=== PATIENT | male | born 1950 | race Caucasian/White ===

== ENCOUNTER 2016-10-06 08:21 | Day surgery (SDC) | payer OTHER ==
[~2016-10-06] VITALS: Ht 167.6 cm; Wt 91.2 kg
--- NOTE | ~2016-10-06 | S ---
[facility] [place] [address] SURGICAL PATH RPT PROCEDURE Name: KATHERINE TRENT Room #: DEP [facility].#: [id number] Admission: 10/06/16 Date of : 46 Discharge: 10/07/16 Report #: [id number] Path Case #: [id number] PATHOLOGY REPORT COLLECTION DATE: 10/06/2016 RECEIVED DATE: 10/06/2016 SUBMITTING PHYS: Dr. Tam Espinal OTHER PHYS: Dr. Clinton Lainez SPECIMEN(S) RECEIVED: A.Melanoma right pinna helix B.Superficial right parotid lymph node C.Deep right parotid lymph node * * * * * * * * * * * * FINAL DIAGNOSIS: A. Skin, "melanoma right pinna helix", re-excision: - Previous biopsy site present. - No evidence of residual malignant melanoma. - Residual intradermal nevus, present at 6:00 and 12:00 tip margins. B. "Superficial right parotid lymph node", biopsy: - One lymph node with no evidence of malignant melanoma (0/1). - Adjacent unremarkable salivary gland tissue. C. "Deep right parotid lymph node", biopsy: - One lymph node with no evidence of malignant melanoma (0/1). - Adjacent unremarkable salivary gland tissue. (Please see comment) COMMENT: No evidence of malignant melanoma is seen in blocks B1 and C1 with the HMB-45, Melan-A, and S100 immunoperoxidase stains. The diagnosis of part "A" in this case is made in conjunction with a consultation with Miroslava Steve MD, Dermatopathologist at [facility]. (SKM:mml; 10/08/2016) PATHOLOGIST: Jocelyn Perez M.D. REPORT ELECTRONICALLY SIGNED BY: Jocelyn Perez M.D. DATE/TIME: 10/08/2016 15:21 * * * * * * * * * * * * GROSS PATHOLOGY: A. The specimen is received in formalin, labeled "Katherine Trent, melanoma right pinna helix, suture at 12:00" is a rectangular excision of colon-viramontes, rubbery skin measuring 1.9 x 0.9 x 0.4 cm. The specimen is marked at one end with a black suture designating the [address] [place] [id number] SURGICAL PATH RPT PROCEDURE Name: KATHERINE TRENT Room #: [facility]#: [id number] Admission: 10/06/16 Date of : 46 Discharge: 10/07/16 Report #: [id number] Path Case #: [id number] o'clock position. The 12-3:00 edge is inked yellow, the 3-6:00 edge is inked blue and the remaining margins are inked black. Centered within the excision is a shallow, ulcerated lesion measuring 0.4 x 0.2 cm. The lesion grossly extends to within 0.5 cm of the closest (3:00) margin of resection. No additional abnormalities are noted. The specimen is sectioned into 10 pieces and entirely submitted as follows: A1 - 12 and 6:00 margins, en face A2 - remaining 12:00 half A3 - remaining 6:00 half B. The specimen is received in formalin, labeled "Katherine Trent, superficial right parotid lymph node" is one colon-brown, nodular, rubbery portion of tissue measuring 0.8 x 0.4 x 0.2 cm. No distinct abnormalities are noted. The specimen is entirely submitted in cassette B1. C. The specimen is received in formalin, labeled "Katherine Trent, deep right parotid lymph node" is an irregular, colon-brown, nodular portion of tissue measuring 1.0 x 0.4 x 0.4 cm. The cut surface is colon-viramontes and spongy. The specimen is bisected and entirely submitted in cassette C1. (LUCILA; 10/07/2016) CLINICAL HISTORY: Melanoma helix right ear INITIAL CPT CODE(S): A; 50610 B; 34424, 66253, 94205, 57718 C; 34703, 48910, 97795, 28702 Professional services performed by [facility] [facility] at [facility] [address] [place] [address] Technical services performed by [facility] [facility] at [address] [place] [address], [address], [place] [address]. [facility] [address] [place] [address] PHONE: [phone] DIRECTOR: Kostas Khan M.D. * * * END OF REPORT * * *
--- NOTE | ~2016-10-06 | EKG ---
[place] [address] [address] [facility] [place] [address] ELECTROCARDIOGRAM REPORT Name: KATHERINE TRENT Room #: 443-P [facility]#: [id number] Admission: 10/06/16 Attend Phys: Tam Espinal MD Discharge: Date of : 46 Report #: [id number] THIS REPORT FOR: //name// [facility] Test Date: 2016-10-06 Test Time: 15:44:26 Pat Name: KATHERINE TRENT Department: Room: 150 9 Gender: M Clinical Medical Assistant: Paz GRAFF : 1950 Requested By: Tam Espinal Order Number: [id number] MD: Gustavo Winn Measurements Intervals [place] Rate: 73 P: 85 CT: 171 QRS: 4 QRSD: 88 T: 40 QT: 446 QTc: 492 Interpretive Statements Sinus rhythm Borderline low voltage, extremity leads Nonspecific ST and T wave abnormality Compared to ECG 09/08/2015 08:26:31 No significant changes Electronically Signed On 10-07-2016 7:54:19 CDT by Gustavo Winn [email or web address] <ELECTRONICALLY SIGNED> By: Gustavo Winn MD, [facility] 10/07/16 0754 1544 1544 Gustavo Winn MD, [facility] /EPI
--- NOTE | ~2016-10-06 | O ---
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 POSTOPERATIVE DIAGNOSIS: Lentigo maligna melanoma, right helical rim, right pinna, Umang level 2, Breslow thickness 0.82 mm. OPERATION PERFORMED: 1. Right partial auriculectomy. 2. [place] lymph node biopsy times 2 with lymph node mapping. 3. Tube flap reconstruction, right pinna. 4. Facial nerve monitor times 2 hours. SURGEON: Keyana Espinal M.D. ANESTHESIA: General endotracheal. INDICATIONS: The patient is a 66-year-old gentleman referred by Danial Gomes and Dr. 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 Biopsy was done 09/07/2016. This was a Umang level 2, Breslow thickness 0.82 mm. It was nonulcerated and arose in a preexisting nevus. Mitotic index was 0 mm2, lymphovascular invasion was not seen, perineural invasion was not seen. Recommendations were made for wide local excision via right auriculectomy of the right helical rim followed by flap reconstruction of the defect utilizing his own helical rim and sentinel node biopsy. DESCRIPTION OF PROCEDURE: The patient was brought to the operating room and placed supine on the operating table. After adequate general anesthesia was achieved via endotracheal intubation, he was turned 180 degrees. A shoulder roll was placed and the right ear was placed up. The planned incision was marked out, taking a 1 cm margin around the scar from the melanoma excision. This was then injected with 1% Xylocaine with 1:100,000 epinephrine. A gamma probe was then used to map the lymph nodes in the area. This seemed to drain to the inferior parotid area over level 2 with the point of maximal uptake. This [facility] [address] [place] [address] OPERATIVE REPORT Name: KATHERINE TRENT Room #: 443-P [facility]#: [id number] Admission: 10/06/16 Attend Phys: Keyana Espinal MD Discharge: Date of : 46 Report #: [id number] area was then prepped out into the field. After mapping as a separate part of the procedure, the Xomed ____ nerve integrity monitor was applied to the right face for continuous intraoperative monitoring of the facial nerve. Needle electrodes were placed in orbicularis carmen and orbicularis oculi muscles with ground electrodes in the soft tissue overlying the sternum and contralateral shoulder. Electrode resistance and impedance was measured and found to be acceptable. Threshold and stimulus intensity parameters were set, and the patient was monitored for the entirety of the case of approximately 2 hours in order to locate and protect the facial nerve. He was then prepped and draped in a sterile fashion. The procedure began with excision of melanoma. 1 cm gross origins were verified and a through and through incision was made through the helical rim into the underlying cartilage of the ear taking out a square segment of the helical rim. Suture was used to keyana 12 o'clock with a 2-0 silk suture. This was then delivered off the field as specimen in formalin. Once this was completed, hemostasis was assured with bipolar cautery. Attention was then turned to the sentinel node biopsy. The gamma probe was again used to verify, uptake was seen in the inferior parotid lobe anterior to the sternocleidomastoid muscle around level 2. A lower limb of a Meng incision had been designed and injected with 1% Xylocaine with 1:100,000 epinephrine. An incision was then made and carried down to the subcutaneous tissue. Subcutaneous flaps were elevated superiorly and inferiorly and held open with ____ inferior portion of the parotid. Using hemostat dissection, dissection was made down through the parotid gland. The retromandibular vein was identified and preserved. The lymph node was found just anterior and deep to the retromandibular vein. Two areas of uptake were found. The first may contain a very small lymph node. The in vivo count prior to excision on a 10-second count with the gamma probe was 687. The ex vivo count was 318 and the surgical bed post-removal was 116. Because of continued uptake, dissection was made deep to this area and a 1 cm lymph node was then found deep and a little bit more anterior. 10-second count in vivo was 561. Ex vivo was 308 and the parotid bed post-removal was 81 showing complete removal. The gamma probe was then used to explore for further parotid as well as level 2 lymph nodes ____ seemed to be hot. At that time, the hemostasis was assured with bipolar cautery and the incision into the parotid was then closed loosely with interrupted 3-0 Vicryl. Skin flaps were returned to original position and closed with interrupted 4-0 Vicryl deep dermal sutures and 35 wide renetta on skin. No drain was needed. Attention was then returned to the right helix and partial auriculectomy. Decision was made to reconstruct this with a tube flap utilizing the patient's helical rim. This was then designed and injected with 1% Xylocaine with [facility] [address] [place] [address] OPERATIVE REPORT Name: KATHERINE TRENT Room #: 443-P [facility].#: [id number] Admission: 10/06/16 Attend Phys: Keyana Espinal MD Discharge: Date of : 46 Report #: [id number] 1:100,000 epinephrine. This was then incised up to the root of the helix so that this could then bend around reconstructing the defect. A small amount of auricular cartilage was removed to facilitate this and keep from this fanning. Once this was inset, it was then closed in the deep tissue with interrupted 4-0 Vicryl deep dermal sutures. The cartilage was then approximated with interrupted 4-0 Vicryl sutures. The anterior skin was then closed with interrupted 5-0 Nylon. The posterior incision was closed with an interrupted 4-0 chromic gut. The wound was able to be closed completely with nice reconstruction of the pinna. Mastisol and Steri-Strips were applied. The vascularity appeared excellent on the flap. A standard adult size Arben dressing was applied. The patient was then returned to anesthesia, awake without difficulty and returned to recovery room in good condition. Sponge and needle counts were correct. There were no complications. Blood loss was about 20 mL. He will be watched overnight for monitoring secondary to his recent cardiac finding of reversible ischemia. Written and verbal discharge instructions and emergency precautions have been given to his family. DISCHARGE MEDICATIONS: Include cephalexin 500 mg b.i.d. for 10 days; hydrocodone/acetaminophen 7.5/325, 1-2 every 4-6 hours p.r.n.; Phenergan suppository 25 mg 1 per rectum q. 4-6 hours p.r.n. He is instructed on light activity and a soft diet. He will begin Bactroban ointment to his ear at home. The patient understands that if his sentinel nodes are positive, further work would need to be done including neck dissection and parotidectomy. On the other hand if the lymph nodes are negative as expected, then no further surgical intervention is necessary. By: 1533 1716 Keyana Espinal MD /ghazal
[~2016-10-06 08:21] MED LIST: ASPIR 8181 MG PO; HYDROCODONE-AP1 EAC6 PO; KLOR-CON 1010 MEQ PO; MOBIC7.5 MG PO; MULTIVITAMINS1 EAC7 PO; PENTOXIFYLLINE400 MG PO; TUMS PO; VITAMIN C500 M1 PO; VITAMIN D1000 UNI1 PO
[2016-10-06 10:35] VITALS: BP 140/76
[2016-10-06] MEDS ORDERED: PROMS25 WY RECTAL (15:41)
[2016-10-06] MEDS ORDERED: CEPHALEXIN 500500 M3 PO (15:41)
[2016-10-06] MEDS ORDERED: HYDROCODONE-APA1 TA1 PO (15:42)
[2016-10-06 17:20] VITALS: BP 153/81
[2016-10-06 19:46] VITALS: BP 148/82
[2016-10-07 00:24] VITALS: BP 145/78
[2016-10-07 04:30] VITALS: BP 112/57
[2016-10-07 05:52] LABS: HEMATOCRIT 41.5 % (42.0-52.0); HEMOGLOBIN 14.3 gm/dL (14.0-18.0); MCH 33.2 pg (26.0-34.0); MCHC 34.5 g/dL (28.0-37.0); MCV 96.2 fL (80.0-100.0); RBC 4.31 mil/uL (4.50-6.00); WBC 8.3 thou/uL (4.0-11.0)
[2016-10-07 06:06] LABS: CALCIUM 8.6 mg/dL (8.5-10.1); CREATININE 0.9 mg/dL (0.7-1.3); POTASSIUM 4.3 mmol/L (3.5-5.1)
[2016-10-07 08:33] VITALS: BP 113/59
[2016-10-07 14:08] VITALS: BP 113/59
== END 2016-10-07 14:48 | disposition home or self-care (01) ==
LOC: 4S 08:21 → NUC 08:21 → TBA 08:51 → 4S 16:56 → NUC 10-07 14:48
PROVIDERS: Otolaryngology Plastic Surgery within the Head & Neck
DX: D23.21 Other benign neoplasm of skin of right ear and external auricular canal (principal); G47.33 Obstructive sleep apnea (adult) (pediatric); F17.210 Nicotine dependence, cigarettes, uncomplicated; K21.9 Gastro-esophageal reflux disease without esophagitis; Z98.41 Cataract extraction status, right eye; Z98.42 Cataract extraction status, left eye; Z98.890 Other specified postprocedural states; Z79.82 Long term (current) use of aspirin; Z85.828 Personal history of other malignant neoplasm of skin
CPT/HCPCS: 50010; 50101; 50386; 51412; 52220; 52225; 53358; 53550; 56524; 56526; 56527; 56528; 57006; 62110; 62900; 70005

== ENCOUNTER 2016-11-08 06:37 | Observation (INO) | payer OTHER ==
[~2016-11-08] VITALS: Ht 167.6 cm; Wt 94.9 kg
--- NOTE | ~2016-11-08 | EKG ---
[place] [address] [employer] [facility] [place] [address] ELECTROCARDIOGRAM REPORT Name: KATHERINE TRENT Room #: 214-P [facility] M.R.#: [id number] Admission: 11/08/16 Attend Phys: Floyd Mar MD, Discharge: Date of : 46 Report #: [id number] THIS REPORT FOR: //name// [facility] Test Date: 2016-11-09 Test Time: 05:53:52 Pat Name: KATHERINE TRENT Department: Room: 214 P Gender: M Head Of Data: GR : 1950 Requested By: Floyd Mar Order Number: [id number] MD: Gustavo Winn Measurements Intervals [place] Rate: 60 P: 4 OK: 130 QRS: -3 QRSD: 95 T: 45 QT: 444 QTc: 444 Interpretive Statements Sinus rhythm Abnormal R-wave progression, early transition Compared to ECG 11/08/2016 11:41:39 No significant changes Electronically Signed On 11-09-2016 7:33:31 CDT by Gustavo Winn [email or web address] <ELECTRONICALLY SIGNED> By: Gustavo Winn MD, [facility] 11/09/16 0733 0553 0553 Gustavo Winn MD, [facility] /EPI
--- NOTE | ~2016-11-08 | CATHLAB ---
[facility] [place] [place] [address] INVASIVE PROCEDURE REPORT Name: TWANKATHERINE Justo Room #: 214-P [facility] [place] ..#: [id number] Admission: 11/08/16 Attend Phys: Floyd Mar, Discharge: 11/09/16 Date of : 46 Date of Service: 11/11/16 0825 Report #: [id number] THIS REPORT FOR: //name// APPROVED REPORT Patient Details Patient Status: Out-Patient Room #: The patient is a 66 year-old male Event Personnel Floyd Mar Edge Polisher, Shilpa Gonzales, Rashad Dubon RN, Keyshawn Victoria RN RN, Tay Vincent Scrub Procedures Performed Art Access - R femoral artery* 32278 Initial Mod Sed Same Phys/QHP Gr5y 758256 85005 Mod Sed Same Phys/QHP Ea 733053 Left Heart Cath w/or w/o Coronaries 6031071 LHC PTCA Single Vessel RCA 5037684 PCISINGLE Aortogram Abdominal Peripheral Angio 393651 Hemostasis w/ Mynx Procedure Narrative The patient was brought electively to the Cardiac Catheterization Laboratory and was prepped and draped in a sterile manner. The Right Groin^ was infiltrated with 1% Lidocaine subcutaneous anesthesia. A PINNACLE 6FR Sheath #[id number] sheath was inserted into the RFA^. Coronary angiography was performed using coronary diagnostic catheters. The right coronary system was accessed and visualized with a 6FR JR 4 #[id number] catheter. The left coronary system was accessed and visualized with a 6FR JL4 #[id number] catheter. The left ventricle was accessed and visualized with a 6FR PIGTAIL STRAIGHT #295083 catheter. Left ventricular/Aortic Valve gradient assessed via catheter pullback. Left ventriculogram was performed in 30 degree projection. An aortogram of the abdominal aorta was performed. Closure device was deployed with a 6 Fr MYNXGRIP 6/7F #[id number]. The patient tolerated the procedure well and there were no complications associated with the procedure. There was no hematoma. Intraoperative Conscious Sedation Sedation start time: 08:41 Case end Time: 09:46 Fentanyl 100.0 mcg Versed 2.0 mg Fluoro Time: 20.27 minutes Dose: DAP 36002.10 cGycm2 2876 mGy [address] [place] [address] INVASIVE PROCEDURE REPORT Name: KATHERINE TRENT Room #: 214-P [facility]#: [id number] Admission: 11/08/16 Attend Phys: Floyd Mar, Discharge: 11/09/16 Date of : 46 Date of Service: 11/11/16 0825 Report #: [id number] Contrast Type and Amount: Omnipaque 220 ml IVUS Findings Sprinter OTW 2.0 x 10 #[id number] Hemodynamics The aortic pressure is 163/70 mmHg with a mean of 105 mmHg. The left ventricular pressure is 189/8 mmHg with a mean of mmHg. The left ventricular end diastolic pressure is 24 mmHg. PCI Technique Lesion Anticoagulation was achieved with Heparin. Percutaneous coronary intervention was performed on the Distal right coronary artery. A LAUNCHER 6FR JR 4 90CM #989250 Guide Catheter was used to engage the ostium. A Luge Wire .014 x 182CM #[id number] Interventional Guidewire was used to cross the lesion. BALLOON DILATION A Balloon catheter Sprinter OTW 1.5 x 12 #[id number] was inserted and inflated up to 14.00atm for 29seconds. Additional Inflation: 18.00atm for 24seconds. POST STENT DEPLOYMENT BALLOON DILATION A Balloon catheter Sprinter OTW 2.5 x 12 #[id number] was inserted and inflated up to 12.00atm for 21seconds. Additional Inflation: 10.00atm for 21seconds. BALLOON DILATION A Balloon catheter Sprinter OTW 2.0 x 10 #[id number] was inserted and inflated up to 14.00atm for 27seconds. Additional Inflation: 18.00atm for 30seconds. Additional Inflation: 18.00atm for 18seconds. POST STENT DEPLOYMENT BALLOON DILATION A Balloon catheter Sprinter OTW 2.5 x 12 #[id number] was inserted and inflated up to 16.00atm for 37seconds. Additional Inflation: 18.00atm for 34seconds. Conclusion #1 successful PTCA of high-grade ostial proximal PDA lesion from 90% to 30% balloon angioplasty alone #2 the dominant right which gave rise to the PDA NESHA is moderately diseased and ectatic. Distal segment is a 50-60% lesion before it heads into the high-grade PDA which was successfully dilated posterior lateral branch is mildly diseased #3 left main has some mild ostial disease of 20-30% giving rise to LAD and circumflex [facility] [address] [place] [address] INVASIVE PROCEDURE REPORT Name: KATHERINE TRENT Room #: 214-P [facility] M.R.#: [id number] Admission: 11/08/16 Attend Phys: Floyd Mar, Discharge: 11/09/16 Date of : 46 Date of Service: 11/11/16824 Report #: [id number] #4 LAD proximal disease 2030% diffuse disease distally is a type I LAD which stops short of the apex. Diffusely diseased and small distally diagonal branch well preserved #5 circumflex OM is nondominant with mild irregularities relatively small #6 normal left ventricular size and systolic function EF 60% #7 abdominal aorta is intact no aneurysm single renal arteries bilaterally are widely patent Recommendations and plan continued aggressive risk factor modification will utilize short period of time of dual antiplatelet therapy with a recent PTCA only of the ostial PDA. This has 110 angle which makes this difficult to deliver a stent. However could attempt if there is significant restenosis with better guide support and wire support. Although this angulation it makes is technically difficult. A good result was obtained with angioplasty alone. Continued activity no lifting for 48 hours overlying tub Jacuzzi or Trimble for a week. Transfer to CCU in stable condition. <ELECTRONICALLY SIGNED> By: Floyd Mar MD, FACC 11/11/16824 4 4 Floyd Mar MD, FACC /INF
--- NOTE | ~2016-11-08 | EKG ---
[place] [address] [address] [place] [address] ELECTROCARDIOGRAM REPORT Name: KATHERINE TRENT [facility] [id number] Admission: 11/08/16 Attend Phys: Floyd Mar MD, Discharge: Date of : 46 Report #: [id number] THIS REPORT FOR: //name// [facility] Test Date: 2016-11-08 Test Time: 07:09:57 Pat Name: KATHERINE TRENT Department: Room: Gender: Dental Assisting Instructor: Lacey ROGEL : 1950 Requested By: lFoyd Mar Order Number: [id number] MD: Gustavo Winn Measurements Intervals [place] Rate: 61 P: 11 UT: 131 QRS: 4 QRSD: 90 T: 33 QT: 428 QTc: 431 Interpretive Statements Sinus rhythm Abnormal R-wave progression, early transition Compared to ECG 10/06/2016 15:44:26 ST (T wave) deviation no longer present Electronically Signed On 11-08-2016 8:54:23 CDT by Gustavo Winn [email or web address] <ELECTRONICALLY SIGNED> By: Gustavo Winn MD, [facility] 11/08/16 0854 8 8 Gustavo Winn MD, [facility] /EPI
--- NOTE | ~2016-11-08 | EKG ---
[place] [address] [facility] [place] [address] ELECTROCARDIOGRAM REPORT Name: KATHERINE TRENT Room #: 214-P [facility] M.R.#: [id number] Admission: 11/08/16 Attend Phys: Floyd Mar MD, Discharge: Date of : 46 Report #: [id number] THIS REPORT FOR: //name// [facility] Test Date: 2016-11-08 Test Time: 11:41:39 Pat Name: KATHERINE TRENT Department: Room: 214 P Gender: M Precision Jig Grinder: Lacey ROGEL : 1950 Requested By: Floyd Mar Order Number: [id number] MD: Measurements Intervals [place] Rate: 54 P: 1 [place]: 132 QRS: 4 QRSD: 86 T: 38 QT: 442 QTc: 419 Interpretive Statements Sinus rhythm Abnormal R-wave progression, early transition Compared to ECG 11/08/2016 07:09:57 No significant changes [email or web address] By: 1141 1141 [facility], /EPI
[~2016-11-08 06:37] MED LIST changes: +CEPHALEXIN 500500 M3 PO; +HYDROCODONE-APA1 TA1 PO; +PROMS25 WY RECTAL
[2016-11-08 07:10] LABS: HEMATOCRIT 46.1 % (42.0-52.0); HEMOGLOBIN 15.6 gm/dL (14.0-18.0); MCH 32.4 pg (26.0-34.0); MCHC 33.9 g/dL (28.0-37.0); MCV 95.4 fL (80.0-100.0); RBC 4.83 mil/uL (4.50-6.00); RDW 14.7 % (10.5-14.5)
[2016-11-08 07:23] LABS: CALCIUM 8.8 mg/dL (8.5-10.1); CREATININE 0.9 mg/dL (0.7-1.3); POTASSIUM 4.2 mmol/L (3.5-5.1)
[2016-11-08 07:29] VITALS: BP 153/85
[2016-11-08] MEDS ORDERED: MOBIC7.5 MG PO (07:48)
[2016-11-08] MEDS ORDERED: LISINOPRIL20 MG PO (07:49)
[2016-11-08] MEDS ORDERED: AMBIEN 5 MG TABL5 M1 PO (07:49)
[2016-11-08] MEDS ORDERED: LIPITOR 20 MG T20 M1 PO (07:50)
[2016-11-08 10:51] VITALS: BP 136/82
[2016-11-08 15:22] VITALS: BP 143/83
[2016-11-08 19:41] VITALS: BP 143/69
[2016-11-08 23:34] VITALS: BP 131/77
[2016-11-09 03:58] VITALS: BP 131/69
[2016-11-09 04:20] LABS: HEMATOCRIT 43.2 % (42.0-52.0); HEMOGLOBIN 14.5 gm/dL (14.0-18.0); MCH 32.2 pg (26.0-34.0); MCHC 33.6 g/dL (28.0-37.0); MCV 95.9 fL (80.0-100.0); RBC 4.51 mil/uL (4.50-6.00); RDW 14.5 % (10.5-14.5); WBC 8.7 thou/uL (4.0-11.0)
[2016-11-09 04:35] LABS: CALCIUM 8.8 mg/dL (8.5-10.1); CREATININE 0.8 mg/dL (0.7-1.3); TROPONIN-I 0.09 ng/mL (<0.04-0.07)
[2016-11-09 07:36] VITALS: BP 140/73
[2016-11-09] MEDS ORDERED: ATORVASTATIN CA40 MG PO (07:49)
[2016-11-09] MEDS ORDERED: CLOPIDOGREL75 MG PO (07:49)
[2016-11-09] MEDS ORDERED: ASPIR 8181 MG PO (07:50)
[2016-11-09 10:27] VITALS: BP 140/73
== END 2016-11-09 11:35 | disposition home or self-care (01) ==
LOC: CATH 06:37 → 2N 10:20 → CATH 10:47 → ENTRNSPT 11-09 11:23 → EDTRNSPTSTS 11-09 11:25 → 2N 11-09 11:35
PROVIDERS: Internal Medicine Cardiovascular Disease
DX: I25.10 Atherosclerotic heart disease of native coronary artery without angina pectoris (principal); R94.39 Abnormal result of other cardiovascular function study; I10 Essential (primary) hypertension; E78.00 Pure hypercholesterolemia, unspecified; F17.210 Nicotine dependence, cigarettes, uncomplicated

== ENCOUNTER → 2017-02-15 | Outpatient (CLI) | payer OTHER ==
[~2017-02-15] MED LIST changes: +AMBIEN 5 MG TABL5 M1 PO; +ASPIRIN325 PO; +ATORVASTATIN CA40 MG PO; +CLOPIDOGREL75 MG PO; +FLOMAX0.4 MG PO; +FUROSEMIDE 40 M40 M1 PO; +HYDROCODON-ACE1 EAC7 PO; +IMDUR 30 MG TAB30 M1 PO; +LIPITOR 20 MG T20 M1 PO; +LISINOPRIL20 MG PO; +LISINOPRIL5 MG PO; +METOPROLOL SUCC25 M1 PO; +NEURONTIN 300300 M1 PO; +PERCOCET PO; +PLAVIX 75 MG TA75 M1 PO; +POTASSIUM20 PO; +TRAMADOL 50 MG50 MG PO; +TYLENOL EXTRA500 MG PO; +VITAMINC500 PO
== END ==
LOC: HYPER 07:00
DX: L97.821 Non-pressure chronic ulcer of other part of left lower leg limited to breakdown of skin (principal); M19.90 Unspecified osteoarthritis, unspecified site; I25.10 Atherosclerotic heart disease of native coronary artery without angina pectoris; I10 Essential (primary) hypertension; Z98.49 Cataract extraction status, unspecified eye; Z98.62 Peripheral vascular angioplasty status; Z87.891 Personal history of nicotine dependence; Z72.89 Other problems related to lifestyle

== ENCOUNTER → 2017-02-22 | Outpatient (CLI) | payer OTHER | LOC: HYPER 06:41 | DX: L97.821 Non-pressure chronic ulcer of other part of left lower leg limited to breakdown of skin (principal); I25.10 Atherosclerotic heart disease of native coronary artery without angina pectoris; M19.90 Unspecified osteoarthritis, unspecified site; Z85.820 Personal history of malignant melanoma of skin; Z87.891 Personal history of nicotine dependence; Z72.89 Other problems related to lifestyle ==

== ENCOUNTER → 2017-03-01 | Outpatient (CLI) | payer OTHER | LOC: HYPER 06:54 | DX: L97.821 Non-pressure chronic ulcer of other part of left lower leg limited to breakdown of skin (principal); I10 Essential (primary) hypertension; I25.10 Atherosclerotic heart disease of native coronary artery without angina pectoris; M19.90 Unspecified osteoarthritis, unspecified site; Z85.820 Personal history of malignant melanoma of skin; Z87.891 Personal history of nicotine dependence; Z72.89 Other problems related to lifestyle ==

== ENCOUNTER → 2017-03-17 | Outpatient (CLI) | payer OTHER | LOC: HYPER 06:45 | DX: I87.321 Chronic venous hypertension (idiopathic) with inflammation of right lower extremity (principal); L97.811 Non-pressure chronic ulcer of other part of right lower leg limited to breakdown of skin; R60.0 Localized edema; R21 Rash and other nonspecific skin eruption; M19.90 Unspecified osteoarthritis, unspecified site; I25.10 Atherosclerotic heart disease of native coronary artery without angina pectoris; Z85.828 Personal history of other malignant neoplasm of skin; Z87.891 Personal history of nicotine dependence; Z72.89 Other problems related to lifestyle ==

== ENCOUNTER → 2017-11-08 | Outpatient (CLI) | payer OTHER ==
[~2017-11-08] VITALS: Ht 167.6 cm; Wt 85.3 kg
--- NOTE | ~2017-11-08 | CATHLAB ---
[facility] [employer] [place] [address] INVASIVE PROCEDURE REPORT Name: KATHERINE TRENT Room #: REG RAMIRO Jeong#: [id number] Admission: 11/08/17 Attend Phys: Floyd Mar, Discharge: Date of : 46 Date of Service: 11/16/17 1022 Report #: [id number] THIS REPORT FOR: //name// APPROVED REPORT Study performed: 11/08/2017 07:56:45 Patient Details Patient Status: Out-Patient Room #: The patient is a 67 year-old male Event Personnel Floyd Mar Latin Teacher, Natalio Canales RN RN, Amarilys Duran RN RN, Consuelo Ryan RTR, [place] Scrub, Sugey Cespedes RTR Scrub, Tay Vincent Monitor Procedures Performed Left Heart Cath w/or w/o Coronaries [id number] [facility] Renal Bilateral Peripheral Angiography [id number] CVRENALBIL Indication Chest pain Procedure Narrative The Right Groin^ was infiltrated with 1% Lidocaine subcutaneous anesthesia. A PINNACLE 6FR Sheath #[id number] sheath was inserted into the RFA^. Coronary angiography was performed using coronary diagnostic catheters. The right coronary system was accessed and visualized with a JR4 catheter. The left coronary system was accessed and visualized with a JL4 catheter. The left ventricle was accessed and visualized with a PIGTAIL catheter. Left ventriculogram was performed in 30 degree projection. Closure device was deployed with a 6 Fr MYNXGRIP 6/7F #[id number]. The patient tolerated the procedure well and there were no complications associated with the procedure. There was no hematoma. Intraoperative Conscious Sedation Sedation start time: 8.14 Case end Time: 8.38 Fentanyl 50 mcg Versed 1 mg Fluoro Time: 1.25 minutes Dose: DAP 2992 cGycm2 357 mGy Contrast Type and Amount: Omnipaque 110 ml [facility] [employer] [place] [address] INVASIVE PROCEDURE REPORT Name: KATHERINE TRENT Room #: [facility] RAMIRO Jeong#: [id number] Admission: 11/08/17 Attend Phys: Floyd Mar, Discharge: Date of : 46 Date of Service: 11/16/17 1022 Report #: [id number] Hemodynamics The aortic pressure is 155/64 mmHg with a mean of 58 mmHg. The left ventricular pressure is 145/11 mmHg with a mean of mmHg. 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 Significant mid vessel calcification with an eccentric lesion 60-70% mid vessel with complex 70-80% bifurcation lesion involving the distal right and ostial PDA significant calcification and small aneurysm is noted This is relatively unchanged from the prior catheterization. That involved balloon angioplasty only of the ostial PDA. Unable to deliver stent at that setting no significant progression here. #6 selective bilateral renal arteries have mild ostial disease Recommendations and plan or continue aggressive risk factor modification. We'll hold off on intervention to this complex dominant right due to paucity of symptoms and notes significant change since prior catheterization of 2015. Close follow-up with evaluation of amount of ischemia to follow in the next 3-6 months with pharmacologic nuclear stress testing <ELECTRONICALLY SIGNED> By: Floyd Mar MD, FACC 11/16/17 1022 1022 1022 Floyd Mar MD, FACC /INF
--- NOTE | ~2017-11-08 | EKG ---
[address] [address] [address] [place] [address] ELECTROCARDIOGRAM REPORT Name: KATHERINE TRENT Room #: REG NICK Jeong#: [id number] Admission: 11/08/17 Attend Phys: Floyd Mar MD, Discharge: Date of : 46 Report #: [id number] THIS REPORT FOR: //name// [facility] Test Date: 2017-11-08 Test Time: 07:03:44 Pat Name: KATHERINE TRENT Department: Room: Gender: Emr Analyst: : 1950 Requested By: Floyd Mar Order Number: [id number] MD: Measurements Intervals [place] Rate: 61 P: [place]: QRS: 12 QRSD: 74 T: 44 QT: 430 QTc: 433 Interpretive Statements Junctional rhythm Borderline low voltage, extremity leads Compared to ECG 10/13/2017 06:38:04 Junctional rhythm now present Sinus rhythm no longer present [email or web address] By: 2 1790 Epiphany EpiphanyMD /EPI
[2017-11-08 06:58] VITALS: BP 110/62
[2017-11-08 07:23] LABS: MCH 34.2 pg (26.0-34.0); MCHC 35.4 g/dL (28.0-37.0); MCV 96.6 fL (80.0-100.0); RBC 3.21 mil/uL (4.50-6.00); RDW 14.9 % (10.5-14.5)
[2017-11-08 07:34] LABS: CALCIUM 8.8 mg/dL (8.5-10.1); POTASSIUM 3.7 mmol/L (3.5-5.1)
== END | disposition home or self-care (01) ==
LOC: CATH 06:39
PROVIDERS: Internal Medicine Cardiovascular Disease
DX: I25.10 Atherosclerotic heart disease of native coronary artery without angina pectoris (principal); I70.1 Atherosclerosis of renal artery; I10 Essential (primary) hypertension; E78.5 Hyperlipidemia, unspecified; G47.33 Obstructive sleep apnea (adult) (pediatric); K21.9 Gastro-esophageal reflux disease without esophagitis; Z85.828 Personal history of other malignant neoplasm of skin; Z98.41 Cataract extraction status, right eye; Z98.42 Cataract extraction status, left eye; Z96.641 Presence of right artificial hip joint; Z87.891 Personal history of nicotine dependence; Z82.49 Family history of ischemic heart disease and other diseases of the circulatory system; Z95.5 Presence of coronary angioplasty implant and graft; Z79.899 Other long term (current) drug therapy

== ENCOUNTER → 2019-04-16 | Outpatient (CLI) | payer OTHER, MEDICARE | LOC: SJCVCIMAG 08:13 | DX: I73.9 Peripheral vascular disease, unspecified (principal) ==

== ENCOUNTER → 2019-08-21 | Outpatient (CLI) | payer OTHER, MEDICARE | LOC: SJCVCIMAG 11:15 | PROVIDERS: ATTEND Internal Medicine Cardiovascular Disease | DX: I25.10 Atherosclerotic heart disease of native coronary artery without angina pectoris (principal); I10 Essential (primary) hypertension; I73.9 Peripheral vascular disease, unspecified; E78.5 Hyperlipidemia, unspecified ==

== ENCOUNTER → 2020-03-12 | Outpatient (CLI) | payer OTHER, MEDICARE | LOC: SJCVC 16:24 | PROVIDERS: ATTEND Internal Medicine Cardiovascular Disease | DX: R94.31 Abnormal electrocardiogram [ECG] [EKG] (principal); I87.2 Venous insufficiency (chronic) (peripheral); M79.89 Other specified soft tissue disorders; E78.00 Pure hypercholesterolemia, unspecified; I10 Essential (primary) hypertension; I25.10 Atherosclerotic heart disease of native coronary artery without angina pectoris; E11.9 Type 2 diabetes mellitus without complications; R19.5 Other fecal abnormalities; Z98.61 Coronary angioplasty status; Z96.641 Presence of right artificial hip joint; Z98.890 Other specified postprocedural states; Z79.82 Long term (current) use of aspirin; Z79.84 Long term (current) use of oral hypoglycemic drugs; Z79.899 Other long term (current) drug therapy; Z87.891 Personal history of nicotine dependence; Z82.49 Family history of ischemic heart disease and other diseases of the circulatory system ==

== ENCOUNTER → 2020-03-17 | Outpatient (CLI) | payer OTHER, MEDICARE | LOC: SJCVCIMAG 12:21 | PROVIDERS: ATTEND Internal Medicine Cardiovascular Disease | DX: Z01.810 Encounter for preprocedural cardiovascular examination (principal); R07.9 Chest pain, unspecified; I25.10 Atherosclerotic heart disease of native coronary artery without angina pectoris; E78.5 Hyperlipidemia, unspecified; I10 Essential (primary) hypertension; E11.9 Type 2 diabetes mellitus without complications; Z79.899 Other long term (current) drug therapy; Z87.891 Personal history of nicotine dependence ==

== ENCOUNTER → 2020-03-27 | Outpatient (CLI) | payer OTHER, MEDICARE ==
[~2020-03-27] VITALS: Ht 167.6 cm; Wt 110.0 kg
[~2020-03-27] MED LIST changes: +ADULT ASPIRIN R81 MG PO; +MAXIMUM D3325 MCG PO; +METFORMIN HCL500 M3 PO; +SSD CREAM 1% 5050 GM TOP
[2020-03-27 13:39] LABS: HEMATOCRIT 40.3 % (42.0-52.0); HEMOGLOBIN 13.4 gm/dL (14.0-18.0); MCH 32.4 pg (26.0-34.0); MCHC 33.2 g/dL (28.0-37.0); MCV 97.3 fL (80.0-100.0); RBC 4.14 mil/uL (4.50-6.00); RDW 14.9 % (10.5-14.5); WBC 5.1 thou/uL (4.0-11.0)
[2020-03-27 13:40] VITALS: BP 132/55
[2020-03-27 13:45] LABS: CALCIUM 8.8 mg/dL (8.5-10.1); CREATININE 1.1 mg/dL (0.7-1.3)
== END | disposition home or self-care (01) ==
LOC: CATH 03-19 08:28
PROVIDERS: ATTEND Nuclear Medicine Nuclear Cardiology
DX: I87.1 Compression of vein (principal); I87.323 Chronic venous hypertension (idiopathic) with inflammation of bilateral lower extremity; R22.43 Localized swelling, mass and lump, lower limb, bilateral; I10 Essential (primary) hypertension; E11.9 Type 2 diabetes mellitus without complications; E78.00 Pure hypercholesterolemia, unspecified; E78.5 Hyperlipidemia, unspecified; I25.10 Atherosclerotic heart disease of native coronary artery without angina pectoris; M19.90 Unspecified osteoarthritis, unspecified site; I73.9 Peripheral vascular disease, unspecified; K21.9 Gastro-esophageal reflux disease without esophagitis; E66.9 Obesity, unspecified; Z98.890 Other specified postprocedural states; Z79.899 Other long term (current) drug therapy; Z85.820 Personal history of malignant melanoma of skin; Z96.641 Presence of right artificial hip joint; Z82.49 Family history of ischemic heart disease and other diseases of the circulatory system; Z98.42 Cataract extraction status, left eye; Z98.41 Cataract extraction status, right eye; Z87.891 Personal history of nicotine dependence

== ENCOUNTER → 2020-03-31 | Outpatient (CLI) | payer OTHER, MEDICARE | LOC: SJCVCIMAG 07:44 | PROVIDERS: ATTEND Nuclear Medicine Nuclear Cardiology | DX: I70.203 Unspecified atherosclerosis of native arteries of extremities, bilateral legs (principal); I87.2 Venous insufficiency (chronic) (peripheral); K21.9 Gastro-esophageal reflux disease without esophagitis; I10 Essential (primary) hypertension; I25.10 Atherosclerotic heart disease of native coronary artery without angina pectoris; E78.5 Hyperlipidemia, unspecified ==

== ENCOUNTER → 2020-04-01 | Outpatient (CLI) | payer OTHER, MEDICARE | LOC: SJCVC 10:01 | PROVIDERS: ATTEND Nuclear Medicine Nuclear Cardiology | DX: I87.2 Venous insufficiency (chronic) (peripheral) (principal); I25.118 Atherosclerotic heart disease of native coronary artery with other forms of angina pectoris; I10 Essential (primary) hypertension; E78.00 Pure hypercholesterolemia, unspecified; M79.89 Other specified soft tissue disorders; Z87.891 Personal history of nicotine dependence; Z72.89 Other problems related to lifestyle; Z79.82 Long term (current) use of aspirin; Z79.84 Long term (current) use of oral hypoglycemic drugs; Z79.899 Other long term (current) drug therapy; Z98.890 Other specified postprocedural states; Z96.641 Presence of right artificial hip joint; Z95.1 Presence of aortocoronary bypass graft ==

== ENCOUNTER → 2020-10-13 | Outpatient (CLI) | payer OTHER, MEDICARE | LOC: SJCVC 14:06 | PROVIDERS: ATTEND Internal Medicine Cardiovascular Disease | DX: R94.31 Abnormal electrocardiogram [ECG] [EKG] (principal); I25.118 Atherosclerotic heart disease of native coronary artery with other forms of angina pectoris; I87.2 Venous insufficiency (chronic) (peripheral); I10 Essential (primary) hypertension; E78.00 Pure hypercholesterolemia, unspecified; M19.90 Unspecified osteoarthritis, unspecified site; Z79.82 Long term (current) use of aspirin; Z79.899 Other long term (current) drug therapy; Z87.891 Personal history of nicotine dependence; Z72.89 Other problems related to lifestyle ==